=== PATIENT | female | born 1970 | race Caucasian/White ===

== ENCOUNTER 2021-04-25 22:44 | Emergency (ER) | payer OTHER ==
[~2021-04-25] VITALS: Ht 175.3 cm; Wt 65.8 kg
[~2021-04-25 22:44] MED LIST: AMOCLA875 PO; AMOX875 PO; AZIT250 PO; CEPH500 PO; CETI10 PO; CLON2 PO; CYCL10 PO; DIPH50 PO; ESTR.1TPB TOP; FAMO20 PO; HYDACE5 PO; HYDMOR2 PO; IBUP600 PO; OXYC30ER PO; PRED20 PO; PROACE100 PO; PROM25 PO; Pyridium200 MG PO; RXNEOPOLHC AS; SULTRIDS PO
[2021-04-25] MEDS ORDERED: Percocet 5-3251 EACH PO (23:41)
== END 2021-04-26 00:23 | disposition home or self-care (01) ==
LOC: ER 22:44
DX: T25.012A Burn of unspecified degree of left ankle, initial encounter (principal); T25.011A Burn of unspecified degree of right ankle, initial encounter; T24.022A Burn of unspecified degree of left knee, initial encounter; T24.021A Burn of unspecified degree of right knee, initial encounter; T31.0 Burns involving less than 10% of body surface; F17.200 Nicotine dependence, unspecified, uncomplicated; Z23 Encounter for immunization; W40.1XXA Explosion of explosive gases, initial encounter
CPT/HCPCS: 16000; 90471; 90714; 96374-59; 99284-25; A9270; J1170

== ENCOUNTER 2021-04-27 20:33 | Emergency (ER) | payer OTHER ==
[~2021-04-27] VITALS: Ht 175.3 cm; Wt 68.0 kg
[~2021-04-27 20:33] MED LIST changes: +Percocet 5-3251 EACH PO
[2021-04-27 23:56] LABS: SARS-Cov-2 (COVID-19) PCR, MMC NEGATIVE (NEGATIVE)
== END 2021-04-27 23:40 | disposition short-term general hospital (02) ==
LOC: ER 20:33
PROVIDERS: Emergency Medicine
DX: T24.202D Burn of second degree of unspecified site of left lower limb, except ankle and foot, subsequent encounter (principal); T24.201A Burn of second degree of unspecified site of right lower limb, except ankle and foot, initial encounter; F17.200 Nicotine dependence, unspecified, uncomplicated; Z20.822 Contact with and (suspected) exposure to COVID-19
CPT/HCPCS: 36415; 96372-59; 96374-59; 99284-25; A9270; J2060; J2270; U0004

== ENCOUNTER 2021-12-03 21:25 | Emergency (ER) | payer OTHER ==
[~2021-12-03] VITALS: Ht 175.3 cm; Wt 65.8 kg
[2021-12-03] MEDS ORDERED: CRUTCH4 XX (23:50)
== END 2021-12-04 00:33 | disposition home or self-care (01) ==
LOC: ER 21:25
DX: S93.402A Sprain of unspecified ligament of left ankle, initial encounter (principal); W01.10XA Fall on same level from slipping, tripping and stumbling with subsequent striking against unspecified object, initial encounter; J44.9 Chronic obstructive pulmonary disease, unspecified; F17.200 Nicotine dependence, unspecified, uncomplicated
CPT/HCPCS: 73610; 99283-25; A9270

== ENCOUNTER 2022-05-22 20:24 | Emergency (ER) | payer OTHER ==
[~2022-05-22] VITALS: Ht 175.3 cm; Wt 69.0 kg
[~2022-05-22 20:24] MED LIST changes: +CRUTCH4 XX
[2022-05-22 21:12] LABS: Source, Urine Clean Catch
[2022-05-22 21:16] LABS: BASOPHILS ABSOLUTE AUTO 0.05 K/mm3 (0.00-0.23); BASOPHILS PERCENT AUTO 1 % (0-2); EOSINOPHILS ABSOLUTE AUTO 0.18 K/mm3 (0.00-0.68); EOSINOPHILS PERCENT AUTO 2 % (0-6); Hematocrit 36.3 % (33.0-51.0); Hemoglobin 12.8 g/dL (11.5-16.0); IMMATURE GRAN ABSOLUTE AUTO 0.02 K/mm3 (0.00-0.10); IMMATURE GRAN PERCENT AUTO 0 % (0-1); LYMPHOCYTES ABSOLUTE AUTO 3.55 K/mm3 (0.84-5.20); LYMPHOCYTES PERCENT AUTO 35 % (21-46); MONOCYTES ABSOLUTE AUTO 0.67 K/mm3 (0.16-1.47); MONOCYTES PERCENT AUTO 7 % (4-13); Mean Corpuscular HGB Conc 35.3 g/dL (31.5-36.5); Mean Corpuscular Volume 88 fL (80-100); Mean Platelet Volume 8.8 fL (9.1-12.4); NEUTROPHILS ABSOLUTE AUTO 5.74 K/mm3 (1.96-9.15); NEUTROPHILS PERCENT AUTO 56 % (41-73); Platelet Count 309 K/mm3 (150-400); RDW Coefficient Variation 13.3 % (11.7-14.2); RDW Standard Deviation 43.1 fL (35.1-46.3); Red Blood Cell Count 4.13 M/mm3 (3.80-5.20); White Blood Cell Count 10.21 K/mm3 (4.00-11.30)
[2022-05-22 21:18] LABS: Appearance, Urine Clear (Clear); Bilirubin, Urine Neg (Neg); Blood, Urine Neg (Neg); Color, Urine Yellow (P-Yellow); Glucose Qualitative, Urine Neg (Neg); Ketones, Urine Neg (Neg); Leukocyte Esterase, Urine Neg (Neg); Nitrite, Urine Neg (Neg); Protein, Urine Neg (Neg); Specific Gravity, Urine 1.015 (1.003-1.022); Urobilinogen, Urine NORM (Normal)
[2022-05-22 21:38] LABS: Albumin, Blood 3.7 g/dL (3.4-5.0); Albumin/Globulin Ratio 1.1 (0.8-1.8); Bilirubin, Total 0.3 mg/dL (0.1-1.0); Bun/Creatinine Ratio 41.8 (12.0-20.0); Calcium, Blood 9.5 mg/dL (8.5-10.1); Creatinine, Blood 0.69 mg/dL (0.40-1.00); Globulin, Blood 3.3 g/dL (2.2-4.0); Potassium, Blood 3.6 mmol/L (3.5-5.5)
== END 2022-05-22 23:44 | disposition home or self-care (01) ==
LOC: ER 20:24
PROVIDERS: Emergency Medicine
DX: M62.830 Muscle spasm of back (principal); F17.210 Nicotine dependence, cigarettes, uncomplicated
CPT/HCPCS: 36415; 80053; 81003; 83690; 85025; 96372; 99283-25; A9270; J1885

== ENCOUNTER → 2022-11-04 | Emergency (ER) | payer OTHER ==
[~2022-11-04] VITALS: Ht 170.2 cm; Wt 61.2 kg
[2022-11-04 12:22] LABS: Influenza A, PCR NEGATIVE (NEGATIVE); Influenza B, PCR NEGATIVE (NEGATIVE); Resp Syncytial Virus, PCR NEGATIVE (NEGATIVE); SARS-Cov-2 (COVID-19) PCR, MMC NEGATIVE (NEGATIVE)
== END ==
LOC: ER 11:07
PROVIDERS: Physician Assistant
DX: J06.9 Acute upper respiratory infection, unspecified (principal); J44.9 Chronic obstructive pulmonary disease, unspecified; F17.200 Nicotine dependence, unspecified, uncomplicated; Z20.822 Contact with and (suspected) exposure to COVID-19
CPT/HCPCS: 0241U

== ENCOUNTER 2024-05-28 18:39 | Emergency (ER) | payer OTHER ==
[~2024-05-28] VITALS: Ht 175.3 cm; Wt 61.2 kg
[2024-05-28 19:07] VITALS: BP 140/77
[2024-05-28] MEDS ORDERED: Ketorolac Tromethamine 30mg Vial IM ONE (19:20)
[2024-05-28] MEDS ORDERED: CYCL10 PO (19:38)
== END 2024-05-28 19:44 | disposition home or self-care (01) ==
LOC: ER 18:39
DX: S39.012A Strain of muscle, fascia and tendon of lower back, initial encounter (principal); S29.012A Strain of muscle and tendon of back wall of thorax, initial encounter; F17.200 Nicotine dependence, unspecified, uncomplicated; X58.XXXA Exposure to other specified factors, initial encounter
CPT/HCPCS: 96372; 99282-25; J1885

== ENCOUNTER 2024-06-07 18:03 | Emergency (ER) | payer OTHER ==
[~2024-06-07] VITALS: Ht 175.3 cm; Wt 63.5 kg
[2024-06-07 18:45] VITALS: BP 124/87
[2024-06-07] MEDS ORDERED: Lidocaine 4% 1 Patch TOP ONE (22:15)
[2024-06-07] MEDS ORDERED: Robaxin750 MG PO (22:15)
[2024-06-07] MEDS ORDERED: Ketorolac Tromethamine 15mg Vial IM ONE (22:15)
[2024-06-07] MEDS ORDERED: ASPERFLEX1 EACH TOP (22:15)
== END 2024-06-07 22:34 | disposition home or self-care (01) ==
LOC: ER 18:03
DX: M25.511 Pain in right shoulder (principal); M62.838 Other muscle spasm; J44.9 Chronic obstructive pulmonary disease, unspecified; F17.200 Nicotine dependence, unspecified, uncomplicated
CPT/HCPCS: 73030; 96372; 99283-25; A9270; J1885